=== PATIENT | male | born 1935 | race Caucasian/White ===

== ENCOUNTER → 2016-10-03 | Outpatient (CLI) | payer MEDICARE, BC ==
[~2016-10-03] MED LIST: B-12500 MCG PO; B100 COMPLEX UL1 TA1 PO; CALCIUM 500500 M2 PO; CARDI-OMEGA1000 MG PO; CARDURA2 MG PO; CARDURA4 M1 PO; DOXAZOCIN; FOLIC ACID; GOOD SENSE ASPI81 M1 PO; OPTIMUM FOLIC800 MCG PO; VITAMIN B100 CO1 TAB PO
[2016-10-03 09:10] VITALS: BP 154/74
== END ==
LOC: AMSURD 08:57
DX: I10 Essential (primary) hypertension (principal); E78.2 Mixed hyperlipidemia; I44.1 Atrioventricular block, second degree

== ENCOUNTER → 2016-11-26 | Outpatient (CLI) | payer MEDICARE, BC ==
[2016-10-03 09:10] VITALS: BP 154/74
== END ==
LOC: LAB 08:46
DX: E03.4 Atrophy of thyroid (acquired) (principal); I10 Essential (primary) hypertension

== ENCOUNTER → 2017-10-06 | Outpatient (CLI) | payer MEDICARE, BC ==
[~2017-10-06] VITALS: Ht 177.8 cm; Wt 75.5 kg
[~2017-10-06] MED LIST changes: +LEVOTHYROXINE0.05 MG PO
[2017-10-06 09:11] LABS: EOS # 0.1 (0.04-0.40); EOS % 1.5 % (0.0-4.0); HEMATOCRIT 43.2 % (42.0-52.0); HEMOGLOBIN 14.4 g/dL (13.5-18.0); LYMPH# 1.1 (1.50-4.00); MEAN CELL VOLUME 95 fl (78-100); MEAN CORPUSCULAR HEMOGLOBIN 32 pg (27-31); MEAN CORPUSCULAR HGB CONC 33 g/dL (33-37); MEAN PLATELET VOLUME 10.3 fl (7.4-10.4); MONO # 0.4 (0.20-0.80); NEU # 4.5 (1.40-6.50); PLATELET COUNT 182 K/mm3 (130-400); RED BLOOD COUNT 4.53 M/mm3 (4.20-5.60); WHITE BLOOD COUNT 6.1 K/mm3 (4.8-10.8)
[2017-10-06 09:31] LABS: BUN/CREATININE RATIO 12.4 (6.0-26.0); CALCIUM 9.2 mg/dL (8.4-10.2); POTASSIUM 4.5 mmol/L (3.6-5.0); TOTAL BILIRUBIN 0.8 mg/dL (0.2-1.3)
[2017-10-06 09:32] VITALS: BP 130/76
[2017-10-06 10:29] LABS: ERYTHROCYTE SEDIMENTATION RATE 3 mm/hr (0-20)
== END ==
LOC: AMSURD 08:47
PROVIDERS: Internal Medicine
DX: I10 Essential (primary) hypertension (principal); I44.1 Atrioventricular block, second degree

== ENCOUNTER → 2018-10-09 | Outpatient (CLI) | payer MEDICARE, BC ==
[~2018-10-09] VITALS: Ht 177.8 cm; Wt 74.5 kg
[~2018-10-09] MED LIST changes: +AUGMENTIN 875-1 EAC1 PO
[2018-10-09 10:13] LABS: EOS # 0.1 (0.04-0.40); EOS % 1.6 % (0.0-4.0); HEMATOCRIT 42.6 % (42.0-52.0); LYMPH# 1.2 (1.50-4.00); MEAN CELL VOLUME 96 fl (78-100); MEAN CORPUSCULAR HEMOGLOBIN 32 pg (27-31); MEAN CORPUSCULAR HGB CONC 33 g/dL (33-37); MEAN PLATELET VOLUME 10.5 fl (7.4-10.4); MONO # 0.4 (0.20-0.80); NEU # 5.2 (1.40-6.50); PLATELET COUNT 188 K/mm3 (130-400); RED BLOOD COUNT 4.45 M/mm3 (4.20-5.60); RED CELL DISTRIBUTION WIDTH 12.7 % (11.5-14.5)
[2018-10-09 10:18] LABS: ALBUMIN 4.3 g/dL (3.5-5.0); CALCIUM 9.3 mg/dL (8.4-10.2); POTASSIUM 4.2 mmol/L (3.6-5.0); TOTAL BILIRUBIN 0.6 mg/dL (0.2-1.3); TOTAL PROTEIN 7.2 g/dL (6.3-8.2)
[2018-10-09 10:54] VITALS: BP 132/74
[2018-10-09 11:58] LABS: ERYTHROCYTE SEDIMENTATION RATE 5 mm/hr (0-20)
[2018-10-09 23:59] LABS: TESTOSTERONE 635 ng/dL (221-716)
== END ==
LOC: AMSURD 09:47
PROVIDERS: Internal Medicine
DX: Z12.5 Encounter for screening for malignant neoplasm of prostate (principal); Z12.11 Encounter for screening for malignant neoplasm of colon; E78.2 Mixed hyperlipidemia; D53.9 Nutritional anemia, unspecified; I10 Essential (primary) hypertension; N52.9 Male erectile dysfunction, unspecified; E03.9 Hypothyroidism, unspecified; R20.2 Paresthesia of skin

== ENCOUNTER → 2018-11-18 | Outpatient (CLI) | payer MEDICARE, BC ==
[2018-10-09 10:54] VITALS: BP 132/74
== END ==
LOC: LAB 09:31
DX: R97.20 Elevated prostate specific antigen [PSA] (principal)

== ENCOUNTER → 2019-04-09 | Outpatient (CLI) | payer MEDICARE, BC ==
[~2019-04-09] VITALS: Ht 177.8 cm; Wt 73.2 kg
[2019-04-09 08:49] LABS: EOS # 0.1 (0.04-0.40); EOS % 2.4 % (0.0-4.0); HEMATOCRIT 41.5 % (42.0-52.0); HEMOGLOBIN 13.7 g/dL (13.5-18.0); LYMPH# 1.3 (1.50-4.00); MEAN CELL VOLUME 95 fl (78-100); MEAN CORPUSCULAR HEMOGLOBIN 31 pg (27-31); MEAN CORPUSCULAR HGB CONC 33 g/dL (33-37); MEAN PLATELET VOLUME 10.7 fl (7.4-10.4); MONO # 0.3 (0.20-0.80); NEU # 3.6 (1.40-6.50); PLATELET COUNT 179 K/mm3 (130-400); RED BLOOD COUNT 4.37 M/mm3 (4.20-5.60); RED CELL DISTRIBUTION WIDTH 12.8 % (11.5-14.5); WHITE BLOOD COUNT 5.4 K/mm3 (4.8-10.8)
[2019-04-09 09:09] VITALS: BP 142/74
[2019-04-09 09:19] LABS: ALBUMIN 4.2 g/dL (3.4-4.8); POTASSIUM 4.4 mmol/L (3.5-5.1)
[2019-04-09 09:20] LABS: CALCIUM 9.4 mg/dL (8.3-10.5)
[2019-04-09 09:22] LABS: TOTAL PROTEIN 6.8 g/dL (6.2-8.1)
[2019-04-09 09:23] LABS: TOTAL BILIRUBIN 0.8 mg/dL (0.2-1.2)
[2019-04-09 09:28] LABS: MAGNESIUM 2.04 mg/dL (1.60-2.60)
[2019-04-09 10:15] LABS: ERYTHROCYTE SEDIMENTATION RATE 4 mm/hr (0-20)
== END ==
LOC: LAB 08:38
PROVIDERS: Internal Medicine
DX: I10 Essential (primary) hypertension (principal); I44.1 Atrioventricular block, second degree

== ENCOUNTER 2019-08-23 09:00 | Outpatient (RCR) | payer MEDICARE, BC ==
[2019-04-09 09:09] VITALS: BP 142/74
== END 2019-09-29 | disposition still patient (30) ==
LOC: PT
DX: R27.0 Ataxia, unspecified (principal); R53.1 Weakness

== ENCOUNTER → 2020-11-21 | Outpatient (CLI) | payer MEDICARE, BC ==
[2019-04-09 09:09] VITALS: BP 142/74
[~2020-11-21] MED LIST changes: +NORVASC 5MG5 MG/TAB PO
[2020-11-21 09:53] LABS: POTASSIUM 4.8 mmol/L (3.5-5.1)
[2020-11-21 09:54] LABS: ALBUMIN 4.3 g/dL (3.4-4.8)
[2020-11-21 09:55] LABS: CALCIUM 9.2 mg/dL (8.3-10.5)
[2020-11-21 09:56] LABS: TOTAL PROTEIN 6.9 g/dL (6.2-8.1)
[2020-11-21 09:58] LABS: TOTAL BILIRUBIN 0.6 mg/dL (0.2-1.2)
[2020-11-21 11:37] LABS: BASO # 0.02 (0.02-0.10); EOS # 0.08 (0.04-0.40); EOS % 1.5 % (0.0-4.0); ERYTHROCYTE SEDIMENTATION RATE 5 mm/hr (0-20); HEMATOCRIT 31.7 % (42.0-52.0); HEMOGLOBIN 13.4 g/dL (13.5-18.0); LYMPH# 1.24 (1.50-4.00); MEAN CELL VOLUME 101 fl (78-100); MEAN CORPUSCULAR HEMOGLOBIN 43 pg (27-31); MEAN CORPUSCULAR HGB CONC 42 g/dL (33-37); MEAN PLATELET VOLUME 10.9 fl (7.4-10.4); MONO # 0.33 (0.20-0.80); NEU # 3.62 (1.40-6.50); PLATELET COUNT 179 K/mm3 (130-400); RED BLOOD COUNT 3.13 M/mm3 (4.20-5.60); RED CELL DISTRIBUTION WIDTH 13.5 % (11.5-14.5); WHITE BLOOD COUNT 5.3 K/mm3 (4.8-10.8)
== END ==
LOC: LAB 09:07 → RAD 09:07
PROVIDERS: Internal Medicine
DX: Z12.5 Encounter for screening for malignant neoplasm of prostate (principal); I10 Essential (primary) hypertension; K90.9 Intestinal malabsorption, unspecified; E03.4 Atrophy of thyroid (acquired); E78.2 Mixed hyperlipidemia; R55 Syncope and collapse

== ENCOUNTER → 2020-11-27 | Outpatient (CLI) | payer MEDICARE, BC ==
[2019-04-09 09:09] VITALS: BP 142/74
== END ==
LOC: RAD 09:45 → VAS 09:45
DX: R55 Syncope and collapse (principal); R06.09 Other forms of dyspnea

== ENCOUNTER → 2020-11-28 | Outpatient (CLI) | payer MEDICARE, BC ==
[2019-04-09 09:09] VITALS: BP 142/74
== END ==
LOC: RAD 07:35
DX: G31.9 Degenerative disease of nervous system, unspecified (principal); I67.82 Cerebral ischemia

== ENCOUNTER → 2020-12-08 | Outpatient (CLI) | payer MEDICARE, BC ==
[2019-04-09 09:09] VITALS: BP 142/74
== END ==
LOC: RAD 09:10
DX: N28.9 Disorder of kidney and ureter, unspecified (principal)

== ENCOUNTER 2021-01-19 09:37 | Emergency (ER) | payer MEDICARE, BC ==
[~2021-01-19 09:37] MED LIST changes: -NORVASC 5MG5 MG/TAB PO
[2021-01-19 10:37] LABS: BASO # 0.03 (0.02-0.10); EOS # 0.14 (0.04-0.40); EOS % 2.2 % (0.0-4.0); HEMATOCRIT 38.5 % (42.0-52.0); HEMOGLOBIN 12.7 g/dL (13.5-18.0); LYMPH# 1.65 (1.50-4.00); MEAN CELL VOLUME 95 fl (78-100); MEAN CORPUSCULAR HEMOGLOBIN 31 pg (27-31); MEAN CORPUSCULAR HGB CONC 33 g/dL (33-37); MONO # 0.47 (0.20-0.80); NEU # 3.99 (1.40-6.50); PLATELET COUNT 181 K/mm3 (130-400); RED BLOOD COUNT 4.05 M/mm3 (4.20-5.60); RED CELL DISTRIBUTION WIDTH 12.3 % (11.5-14.5); WHITE BLOOD COUNT 6.3 K/mm3 (4.8-10.8)
[2021-01-19 10:54] LABS: POTASSIUM 4.3 mmol/L (3.5-5.1); SODIUM 139 mmol/L (136-145)
[2021-01-19 10:55] LABS: CALCIUM 9.1 mg/dL (8.3-10.5)
[2021-01-19 10:57] LABS: GLUCOSE 94 mg/dL (75-110); TOTAL PROTEIN 6.7 g/dL (6.2-8.1)
[2021-01-19 10:58] LABS: CARBON DIOXIDE 27 mmol/L (23-31)
[2021-01-19 10:59] LABS: TOTAL BILIRUBIN 0.6 mg/dL (0.2-1.2)
[2021-01-19 11:02] LABS: AST-SGOT 25 U/L (5-34)
[2021-01-19 11:03] LABS: ALT/SGPT 11 U/L (0-55)
[2021-01-19 11:12] LABS: TROPONIN-I < 0.03 ng/mL (<0.030)
[2021-01-19 11:35] LABS: URINE APPEARANCE CLEAR; URINE BILIRUBIN NEGATIVE (NEGATIVE); URINE BLOOD 50 ery/uL (NEGATIVE); URINE COLOR YELLOW; URINE GLUCOSE NEGATIVE (NEGATIVE); URINE KETONE NEGATIVE (NEGATIVE); URINE LEUKOCYTE ESTERASE NEGATIVE (NEGATIVE); URINE NITRATE NEGATIVE (NEGATIVE); URINE PROTEIN(semi-quant) NEGATIVE (NEGATIVE); URINE UROBILINOGEN NORMAL (NORMAL); URINE WBC 0-1 /hpf (0-3)
[2021-01-19] MEDS ORDERED: NORVASC 5MG5 MG/TAB PO (12:15)
[2021-01-19 12:20] VITALS: BP 193/84
== END 2021-01-19 12:24 | disposition home or self-care (01) ==
LOC: ED 09:37
PROVIDERS: Nurse Practitioner
DX: I10 Essential (primary) hypertension (principal); N40.0 Benign prostatic hyperplasia without lower urinary tract symptoms; Z79.899 Other long term (current) drug therapy

== ENCOUNTER → 2021-04-27 | Outpatient (CLI) | payer MEDICARE, BC ==
[~2021-04-27] MED LIST changes: +NORVASC 5MG5 MG/TAB PO
[2021-04-27 09:53] LABS: BASO # 0.02 K/mm3 (0.02-0.10); EOS # 0.13 K/mm3 (0.04-0.40); LYMPH# 1.79 K/mm3 (1.50-4.00); MEAN CELL VOLUME 99 fl (78-100); MEAN CORPUSCULAR HEMOGLOBIN 32 pg (27-31); MEAN CORPUSCULAR HGB CONC 33 g/dL (33-37); MEAN PLATELET VOLUME 10.3 fl (7.4-10.4); MONO # 0.39 K/mm3 (0.20-0.80); NEU # 4.14 K/mm3 (1.40-6.50); PLATELET COUNT 195 K/mm3 (130-400); RED BLOOD COUNT 4.06 M/mm3 (4.20-5.60); RED CELL DISTRIBUTION WIDTH 12.4 % (11.5-14.5); WHITE BLOOD COUNT 6.5 K/mm3 (4.8-10.8)
[2021-04-27 10:10] LABS: ALBUMIN 4.2 g/dL (3.4-4.8); POTASSIUM 4.7 mmol/L (3.5-5.1)
[2021-04-27 10:11] LABS: CALCIUM 10.2 mg/dL (8.3-10.5)
[2021-04-27 10:13] LABS: TOTAL PROTEIN 7.2 g/dL (6.2-8.1)
[2021-04-27 10:14] LABS: TOTAL BILIRUBIN 0.8 mg/dL (0.2-1.2)
== END ==
LOC: LAB 09:41
PROVIDERS: Internal Medicine
DX: N28.9 Disorder of kidney and ureter, unspecified (principal)

== ENCOUNTER → 2021-06-25 | Outpatient (CLI) | payer MEDICARE, BC ==
[2021-06-25 10:09] LABS: BASO # 0.04 K/mm3 (0.02-0.10); EOS # 0.11 K/mm3 (0.04-0.40); EOS % 1.4 % (0.0-4.0); HEMATOCRIT 43.3 % (42.0-52.0); LYMPH# 1.79 K/mm3 (1.50-4.00); MEAN CELL VOLUME 98 fl (78-100); MEAN CORPUSCULAR HEMOGLOBIN 32 pg (27-31); MEAN CORPUSCULAR HGB CONC 32 g/dL (33-37); MEAN PLATELET VOLUME 10.4 fl (7.4-10.4); MONO # 0.42 K/mm3 (0.20-0.80); NEU # 5.26 K/mm3 (1.40-6.50); PLATELET COUNT 236 K/mm3 (130-400); RED BLOOD COUNT 4.42 M/mm3 (4.20-5.60); RED CELL DISTRIBUTION WIDTH 12.5 % (11.5-14.5); WHITE BLOOD COUNT 7.6 K/mm3 (4.8-10.8)
[2021-06-25 10:14] LABS: ALBUMIN 4.4 g/dL (3.4-4.8)
[2021-06-25 10:15] LABS: POTASSIUM 4.3 mmol/L (3.5-5.1)
[2021-06-25 10:16] LABS: CALCIUM 9.5 mg/dL (8.3-10.5)
[2021-06-25 10:17] LABS: TOTAL PROTEIN 7.3 g/dL (6.2-8.1)
[2021-06-25 10:19] LABS: TOTAL BILIRUBIN 0.8 mg/dL (0.2-1.2)
== END ==
LOC: LAB 09:52
PROVIDERS: Internal Medicine
DX: I10 Essential (primary) hypertension (principal); K90.9 Intestinal malabsorption, unspecified

== ENCOUNTER → 2021-12-24 | Outpatient (CLI) | payer MEDICARE, BC ==
[2021-12-24 09:57] LABS: BASO # 0.04 K/mm3 (0.02-0.10); EOS # 0.13 K/mm3 (0.04-0.40); HEMATOCRIT 39.7 % (42.0-52.0); HEMOGLOBIN 13.1 g/dL (13.5-18.0); LYMPH# 1.65 K/mm3 (1.50-4.00); MEAN CELL VOLUME 95 fl (78-100); MEAN CORPUSCULAR HEMOGLOBIN 31 pg (27-31); MEAN CORPUSCULAR HGB CONC 33 g/dL (33-37); MEAN PLATELET VOLUME 9.7 fl (7.4-10.4); MONO # 0.39 K/mm3 (0.20-0.80); NEU # 4.15 K/mm3 (1.40-6.50); PLATELET COUNT 224 K/mm3 (130-400); RED BLOOD COUNT 4.17 M/mm3 (4.20-5.60); RED CELL DISTRIBUTION WIDTH 12.5 % (11.5-14.5); WHITE BLOOD COUNT 6.4 K/mm3 (4.8-10.8)
[2021-12-24 10:07] LABS: ALBUMIN 4.2 g/dL (3.4-4.8); POTASSIUM 4.6 mmol/L (3.5-5.1)
[2021-12-24 10:08] LABS: CALCIUM 10.1 mg/dL (8.3-10.5)
[2021-12-24 10:09] LABS: TOTAL PROTEIN 7.2 g/dL (6.2-8.1)
[2021-12-24 10:11] LABS: TOTAL BILIRUBIN 0.8 mg/dL (0.2-1.2)
[2021-12-24 10:16] LABS: MAGNESIUM 2.1 mg/dL (1.60-2.60)
== END ==
LOC: LAB 09:41
PROVIDERS: Internal Medicine
DX: Z12.5 Encounter for screening for malignant neoplasm of prostate (principal); N40.0 Benign prostatic hyperplasia without lower urinary tract symptoms; I10 Essential (primary) hypertension; I44.1 Atrioventricular block, second degree; K90.9 Intestinal malabsorption, unspecified; E55.9 Vitamin D deficiency, unspecified